=== PATIENT | female | born 1960 | race Hispanic/Latino ===

== ENCOUNTER 2017-08-30 16:53 | Emergency (ER) | payer SELFPAY ==
[~2017-08-30 16:53] MED LIST: ISOVUE-370 76%-LOCM 1 ML ONE; Iopamidol 370 76% 50 ML VIAL FS ONE
[2017-08-30] MEDS ORDERED: Ondansetron HCl/PF 4 MG/2 ML Vial ONE (18:00)
[2017-08-30] MEDS ORDERED: Morphine 4 MG/ML VIAL ONE (18:00)
[2017-08-30 18:25] LABS: #Basophils 0.1 thou/uL (0.0-0.2); #Eosinphils 0.1 thou/uL (0.0-0.7); #Monocytes 0.9 thou/uL (0.11-0.59); #Neutrophils 7.9 thou/uL (1.40-6.50); %Basophils 0.7 % (0.0-1.0); %Eosinophils 1.2 % (0.0-10.0); %Lymphocytes 24.7 % (21.0-51.0); %Monocytes 7.4 % (0.0-10.0); Hematocrit 42.5 % (36.0-47.0); Mean Platelet Volume 7.4 fL (7.4-10.4); Red Blood Cell (RBC) Count 4.59 mill/uL (4.20-5.40)
[2017-08-30 18:29] LABS: Bilirubin Negative (Negative); Blood, Urine Negative (Negative); Glucose, Urine (Dipstick) Negative (Negative); Ketone, Urine Negative (Negative); Nitrite Negative (Negative); Protein, Urine (Dipstick) Negative (Neg-Trace); Urobilinogen 0.2 mg/dL (0.2-1.0)
[2017-08-30 18:47] LABS: Lactic Acid - Sepsis 1.6 mmol/L (0.5-2.2)
[2017-08-30 18:51] LABS: ALT (SGPT) 47 U/L (8-55); AST (SGOT) 64 U/L (5-34); Alkaline Phosphatase 84 U/L (40-150); Anion Gap 13 mmol/L (10-20); BUN (Urea Nitrogen) 12 mg/dL (9.8-20.1); Bilirubin, Total 0.6 mg/dL (0.2-1.2); CK (CPK) 149 U/L (29-168); Calc. Creatinine Clearance 0 mL/min (70-130); Calcium 9.3 mg/dL (7.8-10.44); Carbon Dioxide 25 mmol/L (22-29); Chloride 105 mmol/L (98-107); Estimated GFR-MDRD 76; Globulin 3.6 g/dL (2.4-3.5); Lipase 54 U/L (8-78); Protein, Total 7.8 g/dL (6.0-8.3)
[2017-08-30 18:55] LABS: Troponin I Less than 0.010 ng/mL (< 0.028)
--- NOTE | 2017-08-30 20:39 | CT ---
CT ABDOMEN AND PELVIS WITH IV AND ORAL CONTRAST 08/30/17 HISTORY: Abdomen pain. Nausea. FINDINGS: There is mild atelectasis at the lung bases. The gallbladder is not visualized and is presumed surgic ally absent. The liver, spleen, kidneys, adrenal glands, and pancreas have a normal CT appearance. Th ere is no evidence of bowel obstruction. Appendix is not inflamed. Urinary bladder is well distended. No free air or free fluid are apparent. There are degenerative changes of the lumbar spine. IMPRESSION: No significant abnormalities are demonstrated. POS: [facility]
== END 2017-08-30 21:25 | disposition home or self-care (01) ==
LOC: ERS 16:53
DX: K29.00 Acute gastritis without bleeding (principal); Z79.899 Other long term (current) drug therapy
CPT/HCPCS: 74177; 80053; 81003; 82150; 82553; 83605; 83690; 84484; 85025; 93005; 96361; 96374; 96375; J2270; J2405

== ENCOUNTER 2017-09-01 21:30 | Emergency (ER) | payer SELFPAY ==
[2017-09-01 22:17] LABS: #Basophils 0.1 thou/uL (0.0-0.2); #Eosinphils 0.2 thou/uL (0.0-0.7); #Lymphocytes 3.6 thou/uL (1.20-3.40); #Monocytes 0.7 thou/uL (0.11-0.59); #Neutrophils 4.2 thou/uL (1.40-6.50); %Eosinophils 2.3 % (0.0-10.0); %Lymphocytes 40.5 % (21.0-51.0); %Monocytes 7.9 % (0.0-10.0); Hematocrit 43.2 % (36.0-47.0); Mean Platelet Volume 7.3 fL (7.4-10.4); Red Blood Cell (RBC) Count 4.69 mill/uL (4.20-5.40); White Blood Cell (WBC) Count 8.8 thou/uL (4.8-10.8)
[2017-09-01 22:39] LABS: ALT (SGPT) 84 U/L (8-55); AST (SGOT) 41 U/L (5-34); Alkaline Phosphatase 93 U/L (40-150); Anion Gap 12 mmol/L (10-20); BUN (Urea Nitrogen) 12 mg/dL (9.8-20.1); Bilirubin, Total 0.5 mg/dL (0.2-1.2); Calc. Creatinine Clearance 0 mL/min (70-130); Calcium 9.6 mg/dL (7.8-10.44); Carbon Dioxide 25 mmol/L (22-29); Chloride 105 mmol/L (98-107); Estimated GFR-MDRD 78; Globulin 3.6 g/dL (2.4-3.5); Lipase 41 U/L (8-78); Protein, Total 7.9 g/dL (6.0-8.3)
[2017-09-01] MEDS ORDERED: Mag-Al 1200 mg/1200 mg/30 ML UDCUP ONE (22:46)
[2017-09-01] MEDS ORDERED: Lidocaine Viscous Sol 2% 15 ml UD Cup ONE (22:46)
[2017-09-01] MEDS ORDERED: Famotidine/PF 20 mg/2ml Vial ONE (22:46)
[2017-09-01 22:58] LABS: Troponin I Less than 0.010 ng/mL (< 0.028)
--- NOTE | 2017-09-01 23:05 | RAD ---
CHEST ONE VIEW 09/01/17 HISTORY: Chest pain. COMPARISON: None. FINDINGS: Lungs without focal air space consolidation, pneumothorax or effusion. The cardiac silhouette and med iastinal contours are within normal limits. There is narrowing of the right subacromial space. IMPRESSION: No acute intrathoracic abnormality. POS: [facility]
== END 2017-09-02 00:15 | disposition home or self-care (01) ==
LOC: ERS 21:30
DX: K29.00 Acute gastritis without bleeding (principal); Z79.899 Other long term (current) drug therapy
CPT/HCPCS: 36415; 71010; 80053; 82553; 83690; 84484; 85025; 93005; 96374; S0028